=== PATIENT | male | born 1950 | race Caucasian/White ===

== ENCOUNTER 2020-02-24 07:30 | Outpatient (RCR) | payer MEDICARE, SELFPAY ==
--- NOTE | 2019-12-29 10:54 | HP.OTEVAL_ITS ---
Patient's Visit Information SHRUTHI BOB III is a 69 year old M, referred to Occupational Therapy by Dr. Jeison Montiel MD, with a diagnosis of Dupuytren right LF. Date of Evaluation: 12/29/19 Occupational Therapist: Herlinda Barragan, OTR/Nerissa, CHT - Subjective This 69 year old male was seen for OT eval with dx of palmar fascial fi bromatosis. Pt states he struggles with ADLs and IADLs as his linmited ROM limits his IND. Pt was seen for Dupuytren (zyloflex) manipulation on 2019. pt arrives for OT eval- pt states this was his second time with manipution and he has concerns as his finger did not straighten out like it did in the past. Pt would like to return to PLOF - Objective pt continues to have brusing around right hand and skin tear on volar right LF - ROM PIP: right LF -45/80 ROM Comments: left hand demo ROM WNL - Strength Strength Comments: will test at later date - Quick DASH-Disab of Arm,Shoulder& Hand Quick DASH Score: 73.3325 - Goals Goal:: pt will demo a increase in right LF PIP ext by 30* Goal:: pt will report pain no greater than 1/10 with use of right hand for ADLS and IADLS Goal:: pt will demo 100% of donning/doffing orthosis by end of 1st session - Rehabilitation General Assessment: pt demo s/p 2 weeks right LF manupulation following zyloflex injection and manipulation- pt struggling to gain full right LF extenson at this time- pt continues to have a skin tear that is a concern for pt as he is on a blood thiner- pt would benefit from skilled OT services to increase pts functional ROM for pt to return to PLOF with ADLS and IADLS. Rehabilitation Potential: Good - Anticipated Interventions A/AAROM/PROM, Strengthening, Edema Control, Scar Care, Triggerpoint Release, Orthoses - Visit Plan Frequency: 1-2x /Week Duration: 6 Weeks General Plan: Ted. custom orthosis for night use to prevent fisting of LF while sleeping- orthosis for revers blocking to strengthen right LF PIP ext. - ed. pt on tendon glides and PROM to increase pts functional ROM. TEXT: Thank you for the opportunity to evaluate your patient. For Medicare and Medicare HMO plans, please review the plan of care and approve it. It will need to be FAXED BACK to us at [phone] for Medicare purposes. Please let me know if there are questions or concerns regarding this plan of care. Physician Signature: Date:
--- NOTE | 2020-04-07 08:29 | HP.OTDCSUM ---
It has been my pleasure to treat SHRUTHI BOB III under orders from Dr. Jeison Montiel MD, for the diagnosis of Dupuytren right LF for a total of 3 visit(s). Please see the following information for a summary of their discharge status. Objective/Function: pt arrives at PIP -40 ext. moist heat and passive stretch ext gained. pt demo with swelling in palm of hand-. pt has not scheduled further apts and due to time lapse in services pt d/c. Patient Goals: Regain Mobility, Decrease Pain, Use Hand/Wrist/Arm Normally Again Goal:: pt will demo a increase in right LF PIP ext by 30* Goal:: pt will report pain no greater than 1/10 with use of right hand for ADLS and IADLS Goal:: pt will demo 100% of donning/doffing orthosis by end of 1st session Plan: pt going to have a 2nd zyliflex injection- within the next two weeks If there are questions or concerns regarding this patient's occupational therapy, please fell free to call me at [phone]. Thank you for the referral of this patient. Sincerely, Herlinda Barragan, OTR/L, CHT
== END 2020-02-24 19:00 | disposition home or self-care (01) ==
LOC: OT 07:30
PROVIDERS: PCP Preventive Medicine Occupational Medicine; Referring Provider Orthopaedic Surgery; Visit Provider Orthopaedic Surgery
DX: M72.0 Palmar fascial fibromatosis [Dupuytren] (principal)
CPT/HCPCS: 97110; 97140; 97166; 97530

== ENCOUNTER 2021-03-03 13:48 | Outpatient (RCR) | payer MEDICARE, SELFPAY | END 2021-03-06 23:59 | LOC: WC 13:48 | PROVIDERS: PCP Preventive Medicine Occupational Medicine; Visit Provider Nurse Practitioner Family | DX: Z09 Encounter for follow-up examination after completed treatment for conditions other than malignant neoplasm (principal) ==

== ENCOUNTER → 2025-03-04 | Outpatient (CLI) | payer MEDICARE, SELFPAY ==
--- NOTE | 2025-03-04 13:45 | RAD_ITS ---
PROCEDURE: RAD/Lumbar Spine 2 or 3 Views
== END | disposition home or self-care (01) ==
LOC: RAD 13:40
PROVIDERS: PCP Student in an Organized Health Care Education/Training Program; Referring Provider Anesthesiology Pain Medicine; Visit Provider Anesthesiology Pain Medicine
DX: M96.1 Postlaminectomy syndrome, not elsewhere classified (principal)
CPT/HCPCS: 72100